=== PATIENT | female | born 1930 | race Caucasian/White ===

== ENCOUNTER 2016-06-23 14:38 | Outpatient (CLI) | payer MEDICARE, OTHER ==
[2015-05-13 21:01] VITALS: BP 130/54
--- NOTE | 2016-06-23 19:59 | Diagnostic Imaging Report ---
Report Submission Date: Jun 23, 2016 5:30:22 PM CDT Patient ~ Study Name: SARAH RAMOS ~ Date: Jun 23, 2016 2:54:20 PM CDT ~ Modality Type: CR Gender: F ~ Description: ABDOMEN : 30 ~ Institution: [facility] Physician: SUSANNE GUTIERREZ ~ ~ ~ ~ KUB Clinical history: Abdominal pain Technique ap supine radiograph of the abdomen Findings: The bowel gas pattern is nonspecific. A punctate left renal calculus is suspected. Lumbar spondylosis and levoscoliosis. There is aortoiliac vascular calcifications. Hip degenerative arthritis is present.. The lung bases are clear Impression: Nonspecific bowel gas pattern Suspect left renal calculus Lumbar spondylosis and levoscoliosis Aortoiliac vascular calcification ~ Electronically signed on Jun 23, 2016 5:30:22 PM CDT by: Cheikh CARRANZA
== END 2016-06-23 14:40 ==
LOC: RAD 14:38
PROVIDERS: ATTEND Physician Assistant
DX: R10.9 Unspecified abdominal pain (principal)
CPT/HCPCS: 74000

== ENCOUNTER 2016-07-12 10:34 | Outpatient (CLI) | payer MEDICARE, OTHER ==
[2015-05-13 21:01] VITALS: BP 130/54
--- NOTE | 2016-07-12 14:29 | Diagnostic Imaging Report ---
DIANA CAMACHO [facility] [id number] [facility].[address] [id number] Report Submission Date: Jul 12, 2016 1:56:30 PM CDT Patient Study Name: SARAH RAMOS Date: Jul 12, 2016 10:47:01 AM CDT Modality Type: CR Gender: F Description: ABDOMEN : 30 Institution: [facility] Physician: DIANA CAMACHO Supine abdomen History: Abdominal pain and swelling. Findings: The bowel gas pattern is normal without constipation or obstruction. A left lower quadrant stoma is present. 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 Atherosclerotic disease and right lower quadrant postoperative changes are noted. Impression: Normal bowel gas pattern without change. Findings are stable since June 23, 2016. Electronically signed on Jul 12, 2016 1:56:30 PM CDT by: Ryan CARRANZA
== END 2016-07-12 10:36 ==
LOC: RAD 10:34
PROVIDERS: ATTEND Family Medicine
DX: R10.9 Unspecified abdominal pain (principal)
CPT/HCPCS: 74000

== ENCOUNTER 2016-12-01 12:49 | Outpatient (CLI) | payer MEDICARE, OTHER ==
[2015-05-13 21:01] VITALS: BP 130/54
--- NOTE | 2016-12-01 21:23 | Diagnostic Imaging Report ---
[facility] [address] [facility].[address] [address] Report Submission Date: Dec 01, 2016 2:51:38 PM CDT Patient Study Name: SARAH RAMOS Date: Dec 01, 2016 12:57:50 PM CDT Modality Type: CR Gender: F Description: CHEST : 30 Institution: [facility] Physician: IGNACIO Examination: PA and lateral chest. History: Evaluate lung chen. Comparison exam: None available Findings: PA lateral chest demonstrates normal cardiac size. Mild vascular calcifications involving the aortic arch. Increased parenchymal haziness involving the lung bases bilaterally, left greater than right. Osseous structures suggest a healing fracture involving the mid right hemithorax. Impression: Bibasilar parenchymal infiltrates, left greater than right. Electronically signed on Dec 01, 2016 2:51:38 PM CDT by: Edy CARRANZA
== END 2016-12-01 12:50 ==
LOC: RAD 12:49
PROVIDERS: ATTEND Family Medicine
DX: R05 Cough (principal); J06.9 Acute upper respiratory infection, unspecified
CPT/HCPCS: 71020

== ENCOUNTER 2018-09-07 06:58 | Outpatient (CLI) | payer MEDICARE, OTHER ==
[2015-05-13 21:01] VITALS: BP 130/54
== END 2018-09-07 07:00 ==
LOC: LAB 06:58
PROVIDERS: ATTEND Family Medicine
DX: R63.4 Abnormal weight loss (principal)

== ENCOUNTER 2018-11-28 08:20 | Outpatient (CLI) | payer MEDICARE, OTHER ==
[2015-05-13 21:01] VITALS: BP 130/54
== END 2018-11-28 08:23 ==
LOC: LAB 08:20
PROVIDERS: ATTEND Family Medicine
DX: I10 Essential (primary) hypertension (principal); E03.9 Hypothyroidism, unspecified
CPT/HCPCS: 83735

== ENCOUNTER 2018-12-19 06:30 | Outpatient (CLI) | payer MEDICARE, OTHER ==
[2015-05-13 21:01] VITALS: BP 130/54
[2018-12-19 08:30] LABS: eGFR (Non-African) > 60
== END 2018-12-19 06:33 ==
LOC: LAB 06:30
PROVIDERS: ATTEND Family Medicine
DX: D64.9 Anemia, unspecified (principal); E78.5 Hyperlipidemia, unspecified; I50.9 Heart failure, unspecified
CPT/HCPCS: 36415; 80048; P9604

== ENCOUNTER 2019-04-09 23:32 | Outpatient (CLI) | payer MEDICARE, OTHER ==
[2015-05-13 21:01] VITALS: BP 130/54
== END 2019-04-09 23:37 ==
LOC: LAB 23:32
PROVIDERS: ATTEND Family Medicine
DX: E83.42 Hypomagnesemia (principal)
CPT/HCPCS: 36415; 83735; P9604